=== PATIENT | male | born 1950 | race Caucasian/White ===

== ENCOUNTER → 2022-10-10 11:26 | Outpatient (CLI) | payer OTHER, SELFPAY ==
--- NOTE | 2022-10-10 | DI.CT.S_ITS ---
PROCEDURE: CT SHOULDER RIGHT WITH CON INDICATIONS: STATUS POST REVERSE TOTAL SHOULDER REPLACEMENT TECHNIQUE: After the intra-articular administration of 12 mL of dilute non-ionic contrast, 1-1.5 mm thick sections acquired from the acromioclavicular joint to the inferior scapula, with coronal and sagittal reformatting. COMPARISON: [facility], , [place] SHOULDER INJECTION MR/CT RT, 10/10/2022, 11:48. [facility], CR, XR SHOULDER 2+ VIEWS RIGHT, 09/26/2022, 10:55. FINDINGS: Image quality: Images are degraded by extensive streak artifact at the level of the shoulder prosthesis despite the use of metal artifact reduction techniques. Some diagnostic information is obtained. Bones: Postsurgical changes are seen from a conventional total shoulder arthroplasty with hardware components in stable positions. No acute osseous fracture is seen. The radiolucent glenoid component is in expected location. No signs of hardware loosening. Hpzm-[id number]-ceefyijv degenerative changes are seen in the acromioclavicular joint. The included right-sided ribs are grossly intact. Degenerative changes are seen in the included spine. Soft tissues: No intra-articular loose body is seen within the glenohumeral joint. No extravasation of intra-articular contrast material into the subacromial/subdeltoid bursa. There appears to be at least partial articular sided tearing of the subscapularis tendon at the distal insertion. Mild fatty infiltration of the teres minor muscle is most likely secondary to chronic denervation changes. No mass is seen along the course of the axillary nerve. The tendons and ligaments are not well evaluated with standard CT. The included portions of the right lung are clear. IMPRESSION: 1. Postsurgical changes from conventional total shoulder arthroplasty with hardware components in expected positions. No acute hardware complication or acute osseous abnormality is seen. 2. Suspected partial articular sided tearing of the subscapularis tendon at the distal insertion. No extravasation of glenohumeral contrast material is seen. 3. Mild to moderate acromioclavicular joint osteoarthrosis. 4. Fatty infiltration of the teres minor muscle is consistent with chronic denervation changes. No mass is seen along the course of the axillary nerve. Approved by: Demarco Cheung M.D. on 10/10/2022 at 22:00
--- NOTE | 2022-10-10 | DI.RAD.S_ITS ---
PROCEDURE: [place] SHOULDER INJECTION MR/CT RT INDICATIONS: STATUS POST REVERSE TOTAL SHOULDER REPLACEMENT COMPARISON: [facility], CT, CT SHOULDER RIGHT WITH CON, 10/10/2022, 12:08. [facility], CR, XR SHOULDER 2+ VIEWS RIGHT, 09/26/2022, 10:55. TECHNIQUE: The indications, alternatives, benefits, risks, and complications of the procedure were explained to the patient. Written informed consent was obtained and placed in the chart. The shoulder was examined fluoroscopically and a site for needle placement chosen for entry into the glenohumeral joint from an anterior approach. The skin was prepped and draped in a sterile fashion, and 1% lidocaine infiltrated from skin down to joint capsule. A spinal needle was inserted into the glenohumeral joint, and a small amount of iodinated contrast media injected to confirm intra-articular placement of the needle tip. This was followed by approximately 12 mL of iodinated contrast. The needle was removed and a dressing was applied. The patient was given postprocedural instructions and sent to the CT suite for imaging. FINDINGS: A single fluoroscopic spot image demonstrates intra-articular location of injected iodinated contrast. IMPRESSION: Successful fluoroscopically guided administration of iodinated contrast solution into the shoulder joint for CT arthrogram. Dictated by: Addie Hoang M.D. on 10/10/2022 at 17:20 Approved by: Addie Hoang M.D. on 10/10/2022 at 17:20
[2022-10-10] MEDS: LIDOCAINE 1% MDV 30 ML INJ (12:42)
== END ==
PROVIDERS: Referring Provider Orthopaedic Surgery; Visit Provider Orthopaedic Surgery
DX: Z96.611 Presence of right artificial shoulder joint (principal); M19.011 Primary osteoarthritis, right shoulder
CPT/HCPCS: 23350; 73201; 77002; A9270